=== PATIENT | male | born 1970 | race Two or more races ===

== ENCOUNTER → 2021-01-17 | Outpatient (CLI) | payer OTHER ==
--- NOTE | 2021-01-17 11:02 | KCIC ---
MR LUMBAR SPINE WO [id number] Date: 01/17/2021 8:45 AM Indication: CHRONIC LBP OVER 3 YRS. Pt states chronic back pain for over 10 yrs. Epidurals, no surgi christian hx. Comparison: None. Technique: Multi-planar multi-weighted magnetic resonance imaging of the lumbar spine was performed w ithout intravenous contrast using the standard lumbar spine protocol. FINDINGS: Transitional anatomy at the lumbosacral junction, with the transitional element designated a partiall y sacralized L5 vertebra. The lumbar spine is normally aligned. No acute fracture. Mild multilevel degenerative disc desiccatio n and disc height loss. No marrow replacing process to suggest malignancy. The conus terminates at a normal level. No abnormal signal is seen within the visualized distal spina l cord. No clumping of intrathecal nerve roots. No soft tissue abnormality in the visualized abdomen or pelvis. T12-L1: No disc bulge. No facet arthropathy. No significant spinal stenosis or neural foraminal narro wing. L1-L2: No disc bulge. No facet arthropathy. No significant spinal stenosis or neural foraminal narrow ing. L2-L3: No disc bulge. Mild facet arthropathy. No significant spinal stenosis or neural foraminal narr owing. L3-L4: Disc bulge. Mild facet arthropathy. No significant spinal stenosis or neural foraminal narrowi ng. L4-L5: Disc bulge. Mild facet arthropathy. No significant spinal stenosis or neural foraminal narrowi ng. L5-S1: No disc bulge. No facet arthropathy. No significant spinal stenosis or neural foraminal narrow ing. IMPRESSION: Mild lumbar spondylosis. No significant spinal canal stenosis or neural foraminal narrowing. Electronically signed by: Melecio Bajwa MD (01/17/2021 11:00 AM) [id number]
--- NOTE | 2021-01-17 11:15 | KCIC ---
MR CERVICAL SPINE WO DATE: 01/17/2021 8:45 AM INDICATION: NECK PAIN OVER 3 YRS. Pt states chronic neck pain for over 10yrs. Epidurals, no surgery. TECHNIQUE: Multiplanar multisequence magnetic resonance imaging of the cervical spine was performed w ithout administration of intravenous contrast using the standard cervical spine protocol. COMPARISON: None. FINDINGS: The cervical spine is normally aligned. No acute fracture. Mild multilevel degenerative disc desicca tion and disc height loss. Degenerative endplate edema at C5-6. The spinal cord is normal in signal intensity. On the limited views of the cranial cavity and brain, the cerebellum and ning have normal morphology and signal characteristics. No Chiari malformation. No soft tissue abnormality. Normal signal voids are present in the vertebral arteries. C2-3: Uncovertebral hypertrophy. Mild right neural foraminal narrowing. No spinal canal stenosis. C3-4: Disc osteophyte complex. Uncovertebral hypertrophy. Mild facet arthropathy. Mild bilateral neur al foraminal narrowing. No spinal canal stenosis. C4-5: Disc osteophyte complex. Uncovertebral hypertrophy. Mild facet arthropathy. Moderate mild left neural foraminal narrowing. No spinal canal stenosis. C5-6: Disc osteophyte complex. Uncovertebral hypertrophy. Moderate facet arthropathy. Ligamentum flav um thickening. Severe bilateral neural foraminal narrowing. Moderate spinal canal stenosis. C6-7: Disc osteophyte complex. Uncovertebral hypertrophy. Moderate right and mild left facet arthropa thy. Mild right and moderate left neural foraminal narrowing. No spinal canal stenosis. C7-T1: Moderate right and mild left facet arthropathy. No significant spinal canal stenosis or neural foraminal narrowing. IMPRESSION: Moderate to severe cervical spondylosis, worst at C5-6 as detailed above. Electronically signed by: Melecio Bajwa MD (01/17/2021 11:12 AM) [id number]
== END ==
LOC: KCIC MRI 08:18
PROVIDERS: ATTEND Clinical Nurse Specialist Family Health
DX: M47.813 Spondylosis without myelopathy or radiculopathy, cervicothoracic region (principal); M47.816 Spondylosis without myelopathy or radiculopathy, lumbar region; M25.78 Osteophyte, vertebrae
CPT/HCPCS: 72141; 72148